=== PATIENT | male | born 1970 | race Caucasian/White ===

== ENCOUNTER 2019-04-08 09:27 | Day surgery (SDC) | payer BC ==
[2019-04-08 10:07] VITALS: BMI 27.6
[2019-04-08] MEDS ORDERED: METOCLOPRAMIDE HCL INJECTION 10 MG/2 ML VIAL ONE (11:09)
[2019-04-08 11:57] VITALS: TEMP 99
[2019-04-08 16:10] VITALS: BP 95/55; PULSE 59
--- NOTE | 2019-04-09 17:10 | PATH ---
Surgical Pathology Report Patient Name: ABI GOODMAN [facility]. Rec. #: [id number] /Age/Gender: 1970 (Age: 48) / M Account: [id number] Location: U-ENDOSCOPY Taken: 04/08/2019 Received: 04/08/2019 Reported: 04/09/2019 Physicians: Saravanan Anguiano D.O. Specimen(s) Received A: RIGHT COLON POLYP B: RIGHT COLON POLYP #2 Clinical History Abdominal pain Postoperative diagnosis: Colon polyps, diverticulosis Final Diagnosis A. COLON, RIGHT, POLYP, BIOPSY: TUBULAR ADENOMA. B. COLON, RIGHT, POLYP #2, POLYPECTOMY: SESSILE SERRATED POLYP. Electronically Signed Briana Delgado M.D. Gross Description A. Received in formalin, labeled "biopsy right colon polyp" is a west, irregular portion of soft tissue measuring 0.3 cm. in greatest dimension. The specimen is submitted in toto in one cassette. B. Received in formalin, labeled "right colon polyp #2" is a west, polypoid portion of soft tissue measuring 0.6 cm. in greatest dimension. The specimen is submitted in toto in one cassette. 04/08/2019 saudi04/08/2019
== END 2019-04-08 12:40 | disposition home or self-care (01) ==
LOC: JASU-ENDO 09:27
PROVIDERS: ATTEND Internal Medicine Gastroenterology
PROC: 0DBF8ZX Excision of Right Large Intestine, Via Natural or Artificial Opening Endoscopic, Diagnostic (ICD-10-PCS; principal; 2019-04-08 10:30)
DX: D12.6 Benign neoplasm of colon, unspecified (principal)
CPT/HCPCS: 88305-TC